=== PATIENT | male | born 1990 | race African-American/Black ===

== ENCOUNTER 2024-10-27 00:25 | Emergency (ER) | payer MEDICAID ==
[~2024-10-27] VITALS: Ht 165.1 cm; Wt 99.5 kg
[2024-10-27 00:42] VITALS: TEMP 98.3
[2024-10-27 00:59] LABS: PLATELET COUNT (AUTO) 178 K/uL (150-450); RED BLOOD CELL COUNT(AUTO) 5.24 MIL/uL (4.50-5.90); RED CELL DISTRIBUTION WIDTH 13.4 % (11.5-14.5); WHITE BLOOD COUNT (AUTO) 4.7 K/uL (4.5-11.0)
[2024-10-27 01:05] LABS: CALCIUM, TOTAL 8.7 mg/dL (8.8-10.5); CREATININE 1.17 mg/dL (0.60-1.30); GLOMERULAR FILTR. RATE CALC > 60 mL/min (>60); GLUCOSE,RANDOM 98 mg/dL (70-110); SODIUM SERUM 135 mmol/L (136-145); UREA NITROGEN, BLOOD 13 mg/dL (7-18)
[2024-10-27] MEDS: MORPHINE SULFATE 2 MG/ML SYRINGE IVP ONE ×2 (01:36→04:11)
[2024-10-27] MEDS: SODIUM CHLORIDE 0.9% 1,000 ML IV ONE (01:36)
[2024-10-27 04:30] VITALS: BP 112/72; PULSE 71; RESP 15; O2SAT 95
[2024-10-27] MEDS ORDERED: CYCL-448 PO (04:37)
== END 2024-10-27 04:59 | disposition home or self-care (01) ==
LOC: EMS 00:25
DX: S30.1XXA Contusion of abdominal wall, initial encounter (principal); M54.9 Dorsalgia, unspecified; V49.9XXA Car occupant (driver) (passenger) injured in unspecified traffic accident, initial encounter; Y92.410 Unspecified street and highway as the place of occurrence of the external cause; Y93.89 Activity, other specified; Y99.8 Other external cause status
CPT/HCPCS: 70450; 99285; 96374; 96361; 80048; 85025; 36415; 71250; 72125; 72128; 72131; 72192; 74150; 96376; G0480; J2270; J7030